=== PATIENT | male | born 1980 ===

== ENCOUNTER → 2023-05-17 07:30 | Outpatient (REF) | payer BC, SELFPAY | LOC: CLAB 07:30 | PROVIDERS: ATTENDING PHYSICIAN Urology | DX: L72.0 Epidermal cyst (principal); Z30.09 Encounter for other general counseling and advice on contraception | CPT/HCPCS: 88302 ==

== ENCOUNTER 2023-05-18 20:03 | Emergency (ER) | payer BC, SELFPAY ==
[2023-05-18 20:03] VITALS: BMI 27.1
[2023-05-18 20:12] VITALS: BP 123/88
--- NOTE | 2023-05-18 23:19 | ED.GENMED ---
History of Present Illness
General
Chief Complaint: Skin Surface Trauma
Source: patient
Exam Limitations: none
Time Seen by Provider: 05/18/23 22:49
Nursing documentation reviewed up to this point in time: agreed with
Travel History
Have you had any contact with someone who has COVID-19?: No
Do you have any symptoms of coronavirus? Fever > 100 degrees, chills, cough, shortness of breath, sore throat, loss of taste or smell, muscle aches, or headache?: No
History of Present Illness
History of Present Illness:
42-year-old male presenting to the emergency department after he cut his left pointer finger with with scissors she was using to make a lap contract with his children. He is unsure when his last tetanus shot was denies numbness weakness or
additional concerns no additional injuries.
Review of Systems
Review of Systems
Allergies reviewed?: Yes
All Other Systems: ROS reviewed and negative except as documented in HPI and ROS
Phy Exam
Physical Exam
Physical Exam:
GENERAL: Alert , in no apparent distress
EYE: pupils equal and reactive
NECK: Supple, no significant adenopathy.
ENT: o/p clr, mmm.
CARDIAC: Regular rate and rhythm .
LUNGS: Clear breath sounds bilaterally, no acute respiratory distress, no wheezes/rales/rhonchi
ABDOMEN: Soft, without focal tenderness, no r/g, no cvat
NEUROLOGICAL: Alert and oriented, no focal neuro deficits
SKIN: 1.5 cm laceration to the distal palmar left index finger subcutaneous in depth warm and dry, skin intact.
MUSCULOSKELETAL: No edema, well perfused.
PSYCH: Normal and appropriate interaction.
Course
Orders/Labs/Results
Orders:
Orders
05/18/23 20:17
Tetanus/Diphth/Acelpertussis [Adacel] 0.5 ml IM .ONCE ONE
05/18/23 23:25
Tetanus/Diphth/Acelpertussis [Adacel] 0.5 ml .ROUTE .STK-MED ONE
Vital Signs
Initial and Last Documented VS:
Initial Vital Signs
Temp Pulse Resp BP Pulse Ox
98.2 F 72 18 123/88 98
05/18/23 20:12 05/18/23 20:12 05/18/23 20:12 05/18/23 20:12 05/18/23 20:12
Last Documented Vital Signs
Temp Pulse Resp BP Pulse Ox
98.2 F 72 18 123/88 98
05/18/23 20:12 05/18/23 20:12 05/18/23 20:12 05/18/23 20:12 05/18/23 20:12
Procedures
Laceration Closure
Left Distal Palmar Second Finger:
Status of Wound: clean
Size of Wound in cm: 1.5
Description of Wound Edges: sharp
Preparation: cleaned with saline
Anesthesia: Digital-Regional and other (2% bupivacaine, 4 mL digital block)
Revision/Debridement: routine- no revision and irrigate-direct pressure
Wound exploration: explored to base- no FB
Type of Closure: interrupted sutures
Skin Closure Material: 5-0 nylon
Number of sutures: 4
MDM/Problems Addressed
MDM/Problems Addressed:
42-year-old male presenting to the emergency department after cutting his finger with scissors prior to arrival. Neurovascularly intact does not appear to be deep to the bone exposure with foreign body seen on x-ray needed given updated tetanus
shot low risk for infection. Closed with 4 nonabsorbable sutures. Advised for return for any signs of infection and to follow-up in 12 to 14 days for suture removal. Was given a splint prior to discharge. Return precautions given for any signs
of infection.
*Critical Care Note
Total Time (30-74mins, 75-104mins- exclusive of procedures): Not Applicable
ED Attending Note
-
Portions of this chart may have been created with voice recognition software.� Occasional wrong word or��sound alike� substitutions may have occurred due to the inherent limitations of voice recognition software.
Discharge Plan
Departure
Patient Disposition: Home (Routine Discharge)
Date of Disposition: 05/18/23
Time of Disposition: 23:21
Patient with high blood pressure during this ER visit?: No
Condition: Good
Covid-19: Not Applicable
Discharge Problem:
Finger laceration
Instructions: Laceration Repair With Stitches (DC)
Referrals:
Yamile Qusipe PA-C [Family Provider] -
Activity Restrictions/Additional Instructions:
You came to the emergency department today with concerns of a finger laceration. This was closed with 4 sutures. Please keep the area clean covered and follow-up for suture removal in 12 to 14 days. Return to the emergency department any
worsening, new or concerning symptoms.
Interventions
Interventions:
*Risk Screen - Suicide Last Done: 05/18/23 20:12
*General Assessment Last Done: 05/18/23 20:12
*Neglect/Abuse Screening Last Done: 05/18/23 20:12
ED- Fall Risk Assessment Last Done: 05/18/23 20:12
*ED COVID-19 Vaccine History Last Done: 05/18/23 20:12
*Nursing Disposition Last Done: 05/18/23 23:34
ED-Skin Assessment Last Done: 05/18/23 23:13
Discharge Date and Time
Discharge Date/Time: 05/18/23 23:38
[2023-05-18] MEDS: ADACEL 0.5 ML IM (23:25)
== END 2023-05-18 23:38 | disposition home or self-care (01) ==
LOC: EMR 20:03
PROVIDERS: EMERGENCY PHYSICIAN Student in an Organized Health Care Education/Training Program; FAMILY PHYSICIAN Physician Assistant Medical
DX: S61.211A Laceration without foreign body of left index finger without damage to nail, initial encounter (principal); W27.2XXA Contact with scissors, initial encounter; Z23 Encounter for immunization
CPT/HCPCS: 64450; 99284; 12001; 90471; 90715